=== PATIENT | male | born 1935 | race Caucasian/White ===

== ENCOUNTER 2017-08-25 05:49 | Inpatient (IN) | payer MEDICARE ==
[2017-08-21 11:41] VITALS: BMI 35.9
[2017-08-25] MEDS ORDERED: CEFAZOLIN/Water 2 GM/20 ML SYRINGE ONE (06:14)
[2017-08-25] MEDS ORDERED: Bacitracin Zinc Ointment 30 gm TUBE ONE (06:24)
[2017-08-25] MEDS ORDERED: Sodium Chloride 0.9% 0 ML ONE (06:24)
[2017-08-25] MEDS ORDERED: Thrombin 5000 UNITS/5 ML VIAL ONE (06:24)
[2017-08-25 06:33] LABS: #Basophils 0.1 thou/uL (0.0-0.2); #Eosinphils 0.2 thou/uL (0.0-0.7); #Lymphocytes 1.9 thou/uL (1.20-3.40); #Monocytes 0.7 thou/uL (0.11-0.59); #Neutrophils 3.9 thou/uL (1.40-6.50); %Basophils 1.3 % (0.0-1.0); %Eosinophils 3.5 % (0.0-10.0); %Lymphocytes 27.3 % (21.0-51.0); %Monocytes 10.7 % (0.0-10.0); %Neutrophils 57.2 % (42.0-75.0); Hemoglobin 13.2 g/dL (14.0-18.0); Mean Corpuscular HGB CONC 34.6 g/dL (32.0-36.0); Mean Corpuscular Hemoglobin 33.9 pg (27.0-31.0); Mean Corpuscular Volume 97.8 fl (80.0-94.0); Mean Platelet Volume 7.7 fL (7.4-10.4); Platelet Count 171 thou/uL (130-400); RBC Distribution Width 11.5 % (11.5-14.5); Red Blood Cell (RBC) Count 3.91 mill/uL (4.70-6.10); White Blood Cell (WBC) Count 6.9 thou/uL (4.8-10.8)
[2017-08-25 06:37] LABS: INR-International Normal Ratio 1.1; Prothrombin Time 14.4 SEC (12.0-14.7)
[2017-08-25 06:38] LABS: PTT 32.5 SEC (22.9-36.1)
[2017-08-25] MEDS ORDERED: Fentanyl 100 MCG/2 ML VIAL ONE (06:46)
[2017-08-25 06:49] LABS: Anion Gap 13 mmol/L (10-20); BUN (Urea Nitrogen) 25 mg/dL (8.4-25.7); Calc. Creatinine Clearance 45 mL/min (70-130); Calcium 9.3 mg/dL (7.8-10.44); Carbon Dioxide 26 mmol/L (23-31); Chloride 105 mmol/L (98-107); Estimated GFR-MDRD 32; Glucose 121 mg/dL (83-110); Potassium 4.2 mmol/L (3.5-5.1); Sodium 140 mmol/L (136-145)
--- NOTE | 2017-08-25 23:53 | EKG ---
Test Reason : PREOP Blood Pressure : / mmHG Vent. Rate : 081 BPM Atrial Rate : 064 BPM P-R Int : 000 ms QRS Dur : 082 ms QT Int : 352 ms P-R-T Axes : 000 001 007 degrees QTc Int : 408 ms Atrial fibrillation with a competing junctional pacemaker Possible Inferior infarct , age undetermined Abnormal ECG No previous ECGs available Confirmed by Judy SILVESTRE ([id number]) on 08/25/2017 11:52:44 PM Referred By: JAZMIN Confirmed By:Judy SILVESTRE
== END 2017-08-25 08:09 | disposition home or self-care (01) | DRG 552 ==
LOC: SURG A 05:49
PROVIDERS: ADMIT Surgery; ATTEND Surgery
DX: M48.062 Spinal stenosis, lumbar region with neurogenic claudication (principal); M71.30 Other bursal cyst, unspecified site; Z53.09 Procedure and treatment not carried out because of other contraindication; I10 Essential (primary) hypertension; I48.91 Unspecified atrial fibrillation; M48.061 Spinal stenosis, lumbar region without neurogenic claudication; Z88.5 Allergy status to narcotic agent; Z90.49 Acquired absence of other specified parts of digestive tract; Z96.653 Presence of artificial knee joint, bilateral; Z82.49 Family history of ischemic heart disease and other diseases of the circulatory system; Z80.9 Family history of malignant neoplasm, unspecified; Z85.038 Personal history of other malignant neoplasm of large intestine; Z87.891 Personal history of nicotine dependence
CPT/HCPCS: 36415; 80048; 85025; 85610; 85730; 93005; 93010; A4216; J3010; J3370; J3490

== ENCOUNTER 2017-10-20 07:23 | Inpatient (IN) | payer MEDICARE ==
[2017-10-19 12:08] VITALS: BMI 35.9
[2017-10-20 09:07] LABS: Hemoglobin 13.6 g/dL (14.0-18.0); Mean Corpuscular HGB CONC 33.9 g/dL (32.0-36.0); Mean Corpuscular Hemoglobin 32.8 pg (27.0-31.0); Mean Corpuscular Volume 96.8 fL (78.0-98.0); Mean Platelet Volume 7.6 fL (7.4-10.4); Platelet Count 183 thou/uL (130-400); RBC Distribution Width 11.6 % (11.5-14.5); Red Blood Cell (RBC) Count 4.16 mill/uL (4.70-6.10); White Blood Cell (WBC) Count 7.1 thou/uL (4.8-10.8)
[2017-10-20 09:24] LABS: Anion Gap 14 mmol/L (10-20); BUN (Urea Nitrogen) 30 mg/dL (8.4-25.7); Calc. Creatinine Clearance 45 mL/min (70-130); Carbon Dioxide 28 mmol/L (23-31); Chloride 103 mmol/L (98-107); Estimated GFR-MDRD 32; Glucose 131 mg/dL (83-110); Potassium 4.3 mmol/L (3.5-5.1); Sodium 141 mmol/L (136-145)
[2017-10-20] MEDS ORDERED: Thrombin 5000 UNITS/5 ML VIAL ONE (09:38)
[2017-10-20] MEDS ORDERED: Bacitracin Zinc Ointment 30 gm TUBE ONE (09:38)
[2017-10-20] MEDS ORDERED: Sodium Chloride 0.9% 10 ML ONE (09:38)
[2017-10-20] MEDS ORDERED: Fentanyl 100 MCG/2 ML VIAL ONE ×2 (10:46→14:47)
[2017-10-20] MEDS ORDERED: CEFAZOLIN/Water 2 GM/20 ML SYRINGE ONE (10:54)
--- NOTE | 2017-10-20 12:29 | EKG ---
Test Reason : PREOP Blood Pressure : / mmHG Vent. Rate : 078 BPM Atrial Rate : 078 BPM P-R Int : 154 ms QRS Dur : 086 ms QT Int : 356 ms P-R-T Axes : 095 012 037 degrees QTc Int : 405 ms Sinus rhythm with Premature atrial complexes Otherwise normal ECG When compared with ECG of 25-AUG-2017 06:36, Sinus rhythm has replaced Atrial fibrillation Confirmed by JAMIE JASSO, SNikki ([id number]) on 10/20/2017 12:29:20 PM Referred By: JAZMIN Confirmed By:DR. Soheila AYALA MD
[2017-10-20] MEDS ORDERED: PHENYLEPHRINE-NS 100 MCG/ML 10 ML SYRINGE ONE ×2 (12:41→12:48)
[2017-10-20] MEDS ORDERED: Glycopyrrolate 0.2 MG/ML 5 ML SYRINGE ONE (12:48)
[2017-10-20] MEDS ORDERED: Ondansetron HCl/PF 4 MG/2 ML Vial ONE (12:48)
[2017-10-20] MEDS ORDERED: Metoclopramide HCl 10 MG/2 ML VIAL ONE (12:48)
[2017-10-20] MEDS ORDERED: Lidocaine 1% PF 5 ML VIAL ONE ×2 (12:48)
[2017-10-20] MEDS ORDERED: PROPOFOL 200 MG/20 ML VIAL ONE (12:48)
[2017-10-20] MEDS ORDERED: Meperidine HCl/PF 25 MG/ML VIAL SLOW IVP PRN ×2 (13:49→14:00)
[2017-10-20] MEDS ORDERED: traMADol HCl 50 MG TAB PO PRN (13:49)
[2017-10-20] MEDS ORDERED: Mag-Al 1200 mg/1200 mg/30 ML UDCUP PO PRN (13:49)
[2017-10-20] MEDS ORDERED: HYDROcodone/Acetaminophen 7.5/325 mg Tablet PO PRN (13:49)
[2017-10-20] MEDS ORDERED: Milk Of Magnesia 30 ML UDCUP PO PRN (13:49)
[2017-10-20] MEDS ORDERED: Acetaminophen/Codeine 30-300mg Tablet PO PRN (13:49)
[2017-10-20] MEDS ORDERED: Promethazine HCl 25 MG/ML VIAL IM PRN ×2 (13:49→14:00)
[2017-10-20] MEDS ORDERED: tiZANidine HCl 4 MG TAB PO PRN (13:49)
[2017-10-20] MEDS ORDERED: Fleet Enema 133 ML BOT PR PRN (13:49)
[2017-10-20] MEDS ORDERED: Bisacodyl 10 MG SUPP PR PRN (13:49)
[2017-10-20] MEDS ORDERED: Acetaminophen 325 MG TAB PO PRN (13:49)
[2017-10-20] MEDS ORDERED: Morphine Sulfate 2 MG/ML SYRINGE SLOW IVP PRN (14:00)
[2017-10-20] MEDS ORDERED: Ondansetron HCl/PF 4 MG/2 ML Vial IVP PRN (14:00)
[2017-10-20] MEDS ORDERED: HYDROmorphone 2 MG/ML VIAL SLOW IVP PRN (14:00)
[2017-10-20] MEDS ORDERED: Promethazine HCl 25 MG/ML VIAL SLOW IVP PRN (14:00)
[2017-10-20] MEDS ORDERED: Promethazine HCl 25 MG/ML VIAL ONE (14:48)
[2017-10-20] MEDS: Sodium Chloride 0.9% 1,000 ML IV SCH (16:57)
--- NOTE | 2017-10-20 18:37 | OP ---
OR: 12. WOUND TYPE: Type 1 wound. SURGEON: Leobardo Huang M.D. PAINTER SUPERVISOR: Micheal Feliz PA-C. PREPROCEDURE DIAGNOSES: Lumbar stenosis with lumbar synovial cyst with low back and leg pain. POSTPROCEDURE DIAGNOSES: Lumbar stenosis with lumbar synovial cyst with low back and leg pain. PROCEDURES: 1. L3-L4 laminectomy, partial facetectomy, foraminotomies. 2. L4-L5 synovial cyst resection. DESCRIPTION OF PROCEDURE: After informed consent was obtained from the patient, the patient was brou ght to OR 12. Proper patient pause and identification was carried out. He was placed under excellen t general endotracheal anesthesia and positioned prone on the OR table. All appropriate points were padded. We identified the L3, L4, L5 dorsal spines. This region was sterilely cleansed, prepared, a nd draped a linear haile was made. It was again sterilely cleansed, prepared, and draped. Proper pat ient pause and identification was carried out. The wound was then opened with a combination of sharp , monopolar and blunt dissection. The L3, L4, L5 dorsal spines and lamina were exposed. Localizatio n film confirmed our area of interest. We then performed L3-L4 laminectomy, partial facetectomy, and foraminotomies over the L3-L4 nerve roots. With excellent decompression of the L3, L4 nerve root, w e then turned our attention to L4-L5 laminectomy and synovial cyst resections. Synovial cyst was padmini ateral. It was larger on the right than the left and this was removed in its entirety. We had excel lent decompression of the common dural tube from L3, L4, L5 nerve roots bilaterally were all freed. Copious irrigation occurred throughout. We maximized hemostasis throughout. We then closed the woun d in anatomic layers following the sprinkling of vancomycin powder. The patient then emerged from an esthesia.
[2017-10-20] MEDS: metFORMIN 500 MG TAB PO SCH (18:57)
[2017-10-20] MEDS: CEFAZOLIN/Water 2 GM/20 ML SYRINGE SLOW IVP SCH (19:00)
[2017-10-20] MEDS: Dutasteride 0.5 MG CAP PO SCH (22:04)
[2017-10-21] MEDS: CEFAZOLIN/Water 2 GM/20 ML SYRINGE SLOW IVP SCH (03:41)
[2017-10-21] MEDS ORDERED: INSULIN DEGLUDEC SC SCH (09:00)
--- NOTE | 2017-10-21 09:08 | ULT ---
ULTRASOUND WITH DOPPLER DUPLEX VENOUS LOWER EXTREMITY BILATERAL: CPT: 83753 ICD-10-PCS: B54D HISTORY: Lower extremity edema, history of PE. TECHNIQUE: Color flow Doppler, spectral waveform analysis of pulsed Doppler, and castaneda-scale imaging with jamal angélica and augmentation, were used to evaluate the bilateral common femoral, femoral, popliteal, gunstock repairer ior tibial, and superficial femoral, veins; and the proximal portions of the profunda femoral and gre ater saphenous, veins. FINDINGS: There is incomplete compressibility and diminished flow involving the femoral vein of the left lower extremity indicating partially occlusive thrombosis. There is no DVT identified within the imaged ri ght lower extremity. IMPRESSION: Evidence of deep vein thrombosis involving the left lower extremity. POS: [facility]
[2017-10-21] MEDS: Multivit, Therapeutic 1 TAB PO SCH (09:37)
[2017-10-21] MEDS: Insulin Glargine 34 UNITS in Pre-Filled Syringe 1 EACH SC SCH (09:37)
[2017-10-21] MEDS: glipiZIDE 10 MG TAB PO SCH (09:37)
[2017-10-21] MEDS ORDERED: Enoxaparin Sodium 30 MG/0.3 ML SYRINGE SC SCH ×2 (09:54→10:00)
[2017-10-21] MEDS ORDERED: Iopamidol 370 76% 50 ML VIAL FS ONE (10:07)
--- NOTE | 2017-10-21 10:17 | PRG ---
DATE OF SERVICE: 10/21/2017 Mr. Peterson is postoperative day 1 from L3-L4 laminectomy and L4-L5 synovial cyst resection. He carvajal s not yet been up walking any appreciable amount. He is voiding on his own and has good strength in his lower extremities. He is unsure if his leg pain is any better. I should note postoperatively in recovery he did not have leg pain and we certainly achieved excellent decompression. His medical st atus is poor frankly, and I have let he and his know that he needs to lose weight. From another standpoint, we have done a surveillance ultrasound this morning as he has a history of a saddle pulm onary embolism a couple years ago and it demonstrates a left lower extremity DVT. We will put him on a low dose Lovenox as we cannot fully anticoagulated yet as he is on postoperative day 1 and then we put him on bed rest at this point and consult our cardiovascular colleagues for placement of a filte r. At some point, he would need to be on anticoagulation.
[2017-10-21] MEDS ORDERED: Lidocaine 1% (PF) 30 ML VIAL ONE (11:46)
[2017-10-21] MEDS: Sodium Chloride 0.9% 1,000 ML IV SCH ×2 (11:47→14:35)
--- NOTE | 2017-10-21 13:47 | OP ---
DATE OF PROCEDURE: 10/21/2017 PREOPERATIVE DIAGNOSES: Left deep venous thrombosis, history of massive pulmonary embolus, status po st recent lumbar spine surgery - contraindication to anticoagulation. POSTOPERATIVE DIAGNOSES: Left deep venous thrombosis, history of massive pulmonary embolus, status p ost recent lumbar spine surgery - contraindication to anticoagulation. PROCEDURES: 1. Inferior vena cavogram. 2. Inferior vena cava filter placement. SURGEON: Marco Antonio Hayes M.D. ANESTHESIA: 1% lidocaine for local. FILTER: Filter - Optease with the hook facing caudad. FLUORO TIME: Total fluoroscopy time 0.6 minutes. TOTAL CONTRAST: 8 mL. PROCEDURE IN DETAIL: After consent was obtained, the patient was brought to the culture media laboratory assistant, placed in supine position on the culture media laboratory assistant table. Appropriate anesthetic monitor was placed. Using ultrasound guidance, the right groin was anesthetized with 1% lidocaine. Percutaneous access to the common femo ral vein was obtained and the cavogram sheath passed at level L1-L2 junction. Hand injected cavogram was performed. An hourglass was noted at the caval/renal vein junction. Cava measured less than 2. 5 cm in maximal diameter. Optease filter was then deployed with its hook facing caudad. Filter seat ed nicely. Sheath was removed and manual pressure held for hemostasis. The patient tolerated the pr ocedure well and will need to return in less than 4 weeks for filter removal.
--- NOTE | 2017-10-21 14:00 | CON ---
DATE OF CONSULTATION: 10/21/2017 HISTORY OF PRESENT ILLNESS: Mr. Peterson underwent lumbar laminectomy on 10/20/2017. He has a hist ory of massive pulmonary embolism in the past after a cholecystectomy. He underwent screening venous duplex today and has a deep venous thrombosis on the left. He is unable to be anticoagulated curren tly. Therefore, I have been asked to place an inferior vena cava filter. PAST MEDICAL HISTORY: 1. Obesity. 2. History of colon cancer. 3. 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 4. History of cataracts, status post cataract surgery. 5. Status post cholecystectomy. ALLERGIES: MORPHINE. CURRENT MEDICATIONS: Medications are noted. PHYSICAL EXAMINATION: GENERAL: This is a morbidly obese gentleman resting comfortably in bed. VITAL SIGNS: Height is 5 feet 10 inches, weight 250 pounds. Pulse is 92, blood pressure is 120/82. LUNGS: Clear bilaterally. HEART: Rhythm is regular. ABDOMEN: Obese, soft and nontender. EXTREMITIES: There is no edema. I have reviewed his venogram, it shows a left deep venous thrombosis. 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 I have discussed vena cava filter placement with him. He is agreeable to proceed.
[2017-10-21] MEDS: metFORMIN 500 MG TAB PO SCH (17:25)
[2017-10-21] MEDS: Dutasteride 0.5 MG CAP PO SCH (20:38)
[2017-10-22] MEDS: glipiZIDE 10 MG TAB PO SCH (06:39)
[2017-10-22] MEDS: Sodium Chloride 0.9% 1,000 ML IV SCH ×2 (07:45→21:07)
[2017-10-22] MEDS: Multivit, Therapeutic 1 TAB PO SCH (08:28)
[2017-10-22] MEDS: Enoxaparin Sodium 30 MG/0.3 ML SYRINGE SC SCH (08:28)
[2017-10-22] MEDS: Insulin Glargine 34 UNITS in Pre-Filled Syringe 1 EACH SC SCH (08:29)
[2017-10-22] MEDS: metFORMIN 500 MG TAB PO SCH (18:52)
[2017-10-22] MEDS: Dutasteride 0.5 MG CAP PO SCH (21:10)
[2017-10-23] MEDS: Sodium Chloride 0.9% 1,000 ML IV SCH ×2 (07:59→22:40)
[2017-10-23] MEDS: Enoxaparin Sodium 30 MG/0.3 ML SYRINGE SC SCH (08:41)
[2017-10-23] MEDS: Insulin Glargine 34 UNITS in Pre-Filled Syringe 1 EACH SC SCH (08:41)
[2017-10-23] MEDS: Multivit, Therapeutic 1 TAB PO SCH (08:41)
[2017-10-23] MEDS: glipiZIDE 10 MG TAB PO SCH (08:41)
[2017-10-23] MEDS ORDERED: Ondansetron HCl/PF 4 MG/2 ML Vial SLOW IVP PRN (12:03)
[2017-10-23] MEDS ORDERED: Milk Of Magnesia 30 ML UDCUP PO PRN (12:03)
--- NOTE | 2017-10-23 13:11 | PRG ---
DATE OF SERVICE: 10/23/2017 Micheal Feliz PA-C dictating for Leobardo Huang MD Mr. Peterson is now postoperative day #3, having undergone multiple level laminectomies. The patien t overall is improving. He has been minimally ambulatory due to deconditioning preoperatively. He h as been working with therapies though. Main issue now is waiting for rehab placement as he would be a good candidate for inpatient rehabilitation. He has good strength in the bilateral lower extremiti es and with improvement of her preoperative leg pain. He has some tenderness into the low back where his incision is otherwise doing well. We will wait for placement, but he is recovering well. Okay to continue Lovenox given the fact that he has an acute left lower extremity DVT.
[2017-10-23] MEDS: metFORMIN 500 MG TAB PO SCH (17:25)
[2017-10-23] MEDS: Dutasteride 0.5 MG CAP PO SCH (21:16)
[2017-10-24] MEDS: glipiZIDE 10 MG TAB PO SCH (07:53)
--- NOTE | 2017-10-24 09:22 | PRG ---
DATE OF SERVICE: 10/24/2017 I saw Noé Peterson in rounds today. His tells me that place is waiting for him in [facility]. His IVC filter is in place and he is on low-molecular weight heparin at a prophylactic dose. H is vital signs remain stable and I do not find any changes in his neurological examination. We are going to take a look at the incision this morning to ensure that the sides are well approximat ed that there is no drainage and that he is ready for transfer. After that is complete, he can make the transfer any time today.
[2017-10-24] MEDS: Multivit, Therapeutic 1 TAB PO SCH (10:01)
[2017-10-24] MEDS: Enoxaparin Sodium 30 MG/0.3 ML SYRINGE SC SCH (10:01)
[2017-10-24] MEDS: Insulin Glargine 34 UNITS in Pre-Filled Syringe 1 EACH SC SCH (10:01)
[2017-10-24] MEDS: Sodium Chloride 0.9% 1,000 ML IV SCH (12:50)
[2017-10-24 16:03] VITALS: BP 135/73; TEMP 97.9
== END 2017-10-24 17:30 | DRG 519 ==
LOC: SDC 07:23 → SJJU 16:30 → SDC 10-21 09:46
PROVIDERS: ADMIT Surgery; ATTEND Surgery
PROC: 06H03DZ Insertion of Intraluminal Device into Inferior Vena Cava, Percutaneous Approach (ICD-10-PCS; principal; 2017-10-21)
PROC: 00BY0ZX Excision of Lumbar Spinal Cord, Open Approach, Diagnostic (ICD-10-PCS; 2017-10-21)
PROC: 01NB0ZZ Release Lumbar Nerve, Open Approach (ICD-10-PCS; 2017-10-21)
DX: M71.38 Other bursal cyst, other site (principal); I82.402 Acute embolism and thrombosis of unspecified deep veins of left lower extremity; M48.062 Spinal stenosis, lumbar region with neurogenic claudication; E66.01 Morbid (severe) obesity due to excess calories; Z68.35 Body mass index [BMI] 35.0-35.9, adult; Z86.711 Personal history of pulmonary embolism; Z85.038 Personal history of other malignant neoplasm of large intestine; Z79.82 Long term (current) use of aspirin; Z79.84 Long term (current) use of oral hypoglycemic drugs; Z79.899 Other long term (current) drug therapy; Z88.5 Allergy status to narcotic agent; Z96.653 Presence of artificial knee joint, bilateral
CPT/HCPCS: 36416; 37191; 76001; 76942; 80048; 85027; 93005; 93010; 93970; A4216; C1769; G8978-GP-CM; G8979-GP-CK; G8987-GO-CM; G8988-GO-CJ; J0131; J1644; J1650; J2001; J2405; J2550; J2704; J2765; J3010; J3370; J3490

== ENCOUNTER → 2017-11-10 | Day surgery (SDC) | payer MEDICARE ==
[2017-11-09 17:27] VITALS: BMI 34.7
[~2017-11-10] MED LIST: Iopamidol 370 76% 50 ML VIAL FS ONE
--- NOTE | 2017-11-10 13:28 | OP ---
DATE OF PROCEDURE: 11/10/2017 PREOPERATIVE DIAGNOSIS: Inferior vena cava filter - now patient is anticoagulated and can have the f ilter removed. POSTOPERATIVE DIAGNOSIS: Inferior vena cava filter - now patient is anticoagulated and can have the filter removed. PROCEDURES: 1. Inferior vena cavogram. 2. Inferior vena cava filter removal. SURGEON: Marco Antonio Hayes M.D. ANESTHESIA: 1% lidocaine for local. PROCEDURE IN DETAIL: After consent was obtained, the patient was brought to the Oven Tender, placed in supine position on the labor relations director table. Groins were prepped and draped in usual sterile fashion. Usi ng ultrasound guidance, the right groin was anesthetized with 1% lidocaine. Percutaneous access comm on femoral vein was obtained and an 8 6-Israeli angled sheath placed. Hand injected vena cavogram was performed showing no clot within the vena cava filter. Snare was then passed through the sheath and the tip of the filter snared. Sheath was used to collapse the filter. Filter was retrieved and rem daysi. Hand injected vena cavogram showed a good flow through the vena cava with no extravasation. S leandra was removed and manual pressure held for hemostasis. The patient will be sent back to the [facility] home later today.
== END ==
LOC: CCL 10:42
PROVIDERS: ATTEND Thoracic Surgery (Cardiothoracic Vascular Surgery)
PROC: 06PY3DZ Removal of Intraluminal Device from Lower Vein, Percutaneous Approach (ICD-10-PCS; principal; 2017-11-10)
DX: Z45.2 Encounter for adjustment and management of vascular access device (principal); I82.412 Acute embolism and thrombosis of left femoral vein; E66.9 Obesity, unspecified; F41.9 Anxiety disorder, unspecified; E11.9 Type 2 diabetes mellitus without complications; E78.5 Hyperlipidemia, unspecified; E83.52 Hypercalcemia; Z79.82 Long term (current) use of aspirin; Z79.899 Other long term (current) drug therapy; Z79.01 Long term (current) use of anticoagulants; Z87.891 Personal history of nicotine dependence; Z88.5 Allergy status to narcotic agent; Z79.84 Long term (current) use of oral hypoglycemic drugs; Z68.34 Body mass index [BMI] 34.0-34.9, adult
CPT/HCPCS: 37193; 76942; C1769; J1644